=== PATIENT | male | born 1965 | race Caucasian/White ===

== ENCOUNTER 2021-05-07 14:21 | Emergency (ER) | payer OTHER ==
[~2021-05-07] VITALS: Ht 167.6 cm; Wt 81.7 kg
--- NOTE | ~2021-05-07 | EMS ---
[facility] [address] [place] [address] EMS Patient Care Report Name: ELISSA DAS Room #: REG DOT Kowalski#: [id number] Admission: 05/07/21 Attend Phys: Discharge: Date of : 63 Report #: [id number] THIS REPORT FOR: //name// Report Transmitted: 05/07/2021 15:07 EMS Care Summary [facility] MED-ACT Incident [id number] @ 05/07/2021 13:47 Incident Location [address], [place] [address] Patient ELISSA DAS Male, 56 Years 1965 Patient Address [address] [place] [id number] Patient History None Reported, Patient Allergies No known allergies, Patient Medications None Reported, Chief Complaint fainting Disposition Transported No Lights/[place] Dispatch Reason Sick Person Transported To [facility] Narrative At 13:47, [id number] was dispatched by [address] [facility], [address] for a C2 sick/ill subject. CFD#2 was also dispatched. 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 Bystanders stated that he collapsed and almost passed out. PT complained of becoming very weak and feeling like throwing up, as well as tingling in his extremities. . PT also exhibited rapid belly breathing. He denied any pain, difficulty breathing, or dizziness. We noticed that even though he was sitting in a hot vehicle, the PT was not sweating when we arrived. 18ga IV started in right AC. 500ml NS administered. Zofran 4mg. 12-leads showed no ectopy. VS, ECG, and 12-leads as listed. Radio report to George. Transfer of care to ED room 2. Initial Vitals @14:14P: 78,[place] Suspected: false @14:10P: 82,SpO2: 99,[place] Suspected: false @14:00P: 82,SpO2: 99,[place] Suspected: false @14:02P: 79,[place] Suspected: false @14:09P: 84,R: 30,BP: 159/80,GCS: 15,SpO2: 100,Revised Trauma: 11, @14:18P: 87,R: 30,BP: 142/74,GCS: 15,SpO2: 100,Revised Trauma: 11, @13:56P: 99,R: 30,BP: 149/105,Pain: 0/10,GCS: 15,Temp: 97.9F,Glucose: 289,SpO2: 99,Revised Trauma: 11, Assessments @13:54MENTAL:Person Oriented,Time Oriented,Place Oriented,Event Oriented,SKIN:Hot,HEENT:Eyes: Left Pupil: 4-mm,Eyes: Right Pupil: 4-mm,Head/Face: No Abnormalities,Neck/Airway: No Abnormalities,LUNG SOUNDS:ABDOMEN:PELVIS//GI:No Abnormalities,EXTREMITIES:PULSE:NEURO:No Abnormalities, Impression Syncope / Fainting Procedures @14:0212-Lead ECGResponse: UnchangedSucceeded@13:57Normal Saline (.9% NaCl) 500cc (18 ga) Site: Antecubital-RightResponse: ImprovedSucceeded@14:1012-Lead ECGResponse: UnchangedSucceeded@13:54ALS AssessmentResponse: UnchangedSucceeded@14:14Ondansetron - 4 Milligrams (mg) - Intravenous (IV)Response: Improved Timeline 13:46,Call Received 13:46,Psap Call 13:47,Dispatched 13:48,En Route 13:52,On Scene 13:53,[place] [address] EMS Patient Care Report Name: ELISSA DAS Room #: REG DOT Kowalski#: [id number] Admission: 05/07/21 Attend Phys: Discharge: Date of : 63 Report #: [id number] 13:54,ALS Assessment,Response: UnchangedSucceeded, 13:56,BP: 149/105 M,PULSE: 99,RR: 30 R,SPO2: 99 Ox,ETCO2: ,B,PAIN: 0,GCS: 15, 13:57,Normal Saline (.9% NaCl) 500cc 18 ga Site: Antecubital-Right,Response: ImprovedSucceeded, 14:00,BP: / M,PULSE: 82,RR: R,SPO2: 99 Ox,ETCO2: ,BG: ,PAIN: ,GCS: , 14:02,12-Lead ECG,Response: UnchangedSucceeded, 14:02,BP: / M,PULSE: 79,RR: R,SPO2: Ox,ETCO2: ,BG: ,PAIN: ,GCS: , 14:02,Depart Scene 14:09,BP: 159/80 M,PULSE: 84,RR: 30 R,SPO2: 100 Ox,ETCO2: ,BG: ,PAIN: ,GCS: 15, 14:10,12-Lead ECG,Response: UnchangedSucceeded, 14:10,BP: / M,PULSE: 82,RR: R,SPO2: 99 Ox,ETCO2: ,BG: ,PAIN: ,GCS: , 14:14,Ondansetron - 4 Milligrams (mg) - Intravenous (IV),Response: Improved 14:14,BP: / M,PULSE: 78,RR: R,SPO2: Ox,ETCO2: ,BG: ,PAIN: ,GCS: , 14:18,At Destination 14:18,BP: 142/74 M,PULSE: 87,RR: 30 R,SPO2: 100 Ox,ETCO2: ,BG: ,PAIN: ,GCS: 15, 14:35,Call Closed Disclaimer v1.1 Copyright 2020 [employer] This EMS Care Summary contains data elements from the applicable legal record (which may be displayed differently). It is designed to provide pertinent information for the following purposes: continuity of care, clinical quality, and state data reporting. The complete legal record is available to ED staff and administrators of the receiving hospital in [employer] Patient Tracker. All data is provided "as is."
[2021-05-07 14:47] LABS: ABSOLUTE NEUTROPHILS 3.2 thou/uL (1.4-8.2); BASOPHILS 0.7 % (0.0-2.0); EOSINOPHILS 1.1 % (0.0-3.0); HEMATOCRIT 33.9 % (42.0-52.0); LYMPHOCYTES 40.2 % (24.0-44.0); MCH 32.7 pg (26.0-34.0); MCHC 35.4 g/dL (28.0-37.0); MCV 92.5 fL (80.0-100.0); PLATELET COUNT 166 thou/uL (150-400); RBC 3.66 mil/uL (4.50-6.00); RDW 12.3 % (10.5-14.5); WBC 6.3 thou/uL (4.0-11.0)
[2021-05-07] MEDS ORDERED: NOHOMEMEDICATIONS (14:57)
[2021-05-07 15:03] LABS: ANION GAP 15 mmol/L (7-16); BUN 15 mg/dL (7-18); CALCIUM 8.5 mg/dL (8.5-10.1); CHLORIDE 108 mmol/L (98-107); CO2 18 mmol/L (21-32); CREATININE 1.1 mg/dL (0.7-1.3); GLUCOSE 259 mg/dL (74-106); SODIUM 141 mmol/L (136-145)
[2021-05-07 15:17] LABS: TROPONIN-I <0.06 ng/mL (<0.06)
--- NOTE | 2021-05-07 15:26 | EKG ---
[address] [employer] [place] [address] ELECTROCARDIOGRAM REPORT Name: ELISSA DAS Room #: REG DOT Kowalski#: [id number] Admission: 05/07/21 Attend Phys: Discharge: Date of : 63 Report #: [id number] [facility] ED Test Date: 2021-05-07 Test Time: 14:45:48 Pat Name: ELISSA DAS Department: Room: Gender: M Manager Performance: : 1965 Requested By: Eddie Danielle Order Number: [id number] MD: Jt Olson Measurements Intervals Vickery Rate: 72 P: 43 UT: 169 QRS: 43 QRSD: 95 T: 31 QT: 428 QTc: 469 Interpretive Statements Sinus rhythm Abnormal R-wave progression, early transition No previous ECG available for comparison Electronically Signed On 05-07-2021 15:26:19 CDT by Jt Olson [email or web address] <ELECTRONICALLY SIGNED> By: Jt Olson MD, [facility] 05/07/21 1526 1445 1445 Jt Olson MD, FACC /EPI
[2021-05-07] MEDS ORDERED: DOXYCYCLINE 10100 MG PO (16:12)
[2021-05-07 16:14] VITALS: BP 127/60
== END 2021-05-07 16:23 | disposition home or self-care (01) ==
LOC: ER 14:21
PROVIDERS: Nurse Practitioner
DX: T73.2XXA Exhaustion due to exposure, initial encounter (principal); J18.9 Pneumonia, unspecified organism; R06.00 Dyspnea, unspecified; R20.2 Paresthesia of skin; X30.XXXA Exposure to excessive natural heat, initial encounter